=== PATIENT | male | born 1975 | race African-American/Black ===

== ENCOUNTER 2018-06-12 23:02 | Emergency (ER) | payer MEDICAID ==
[~2018-06-12] VITALS: Ht 185.4 cm; Wt 179.2 kg
[2018-06-12 23:10] VITALS: BP 155/84
[2018-06-12] MEDS ORDERED: Norco 5mg/325mg tab ORAL ONE (23:45)
[2018-06-12] MEDS ORDERED: AMOXICILLIN500 MG ORAL (23:45)
[2018-06-12] MEDS ORDERED: NORCO 5-325 TA1 EACH ORAL (23:45)
[2018-06-12 23:56] VITALS: BP 150/82
--- NOTE | 2018-06-13 00:24 | Emergency Room Report ---
History of Present Illness General Chief Complaint: Pain Source: Patient Present Illness HPI 43-year-old male presents ED for evaluation. Complaining of left-sided mouth pain. States that he's been experiencing some pain in his teeth and gums for the last few days. Schedule appointment with dentist tomorrow. States a low- grade fever at home. Pain is sharp, 10 out of 10, nonradiating. Causing headaches. Afebrile in triage. Denies any neck pain or neck stiffness. Denies earache or sore throat. No other aggravating relieving factors. Denies any other associated symptoms Allergies: Coded Allergies: No Known Allergies (Unverified , 06/12/18) Patient History Past Medical History: none Past Surgical History: none Pertinent Family History: none Social History: Denies: smoking, alcohol use, drug use Immunizations: UTD Reviewed Nursing Documentation: PMH: Agreed; PSxH: Agreed Nursing Documentation-PMH Past Medical History: No History, Except For Review of Systems All Other Systems: negative except mentioned in HPI Physical Exam Vital Signs Date Time Temp Pulse Resp B/P (MAP) Pulse Ox O2 Delivery O2 Flow Rate FiO2 06/12/18 23:06 99.2 71 16 155/84 96 Room Air 99.1 Sp02 EP Interpretation: reviewed, normal General Appearance: no apparent distress, alert, GCS 15, non-toxic, obese Head: normocephalic Eyes: bilateral eye normal inspection, bilateral eye PERRL ENT: hearing grossly normal, normal pharynx, no angioedema, normal voice, TMs + canals normal, other - inflammation of the gums upper and lower jaw Neck: normal inspection, supple, no meningismus Respiratory: normal inspection Cardiovascular #1: normal inspection Gastrointestinal: normal inspection Rectal: deferred Genitourinary: no CVA tenderness Musculoskeletal: normal inspection Neurologic: alert, oriented x3, responsive, motor strength/tone normal, sensory intact, speech normal Psychiatric: normal inspection Skin: normal inspection Lymphatic: normal inspection Medical Decision Making Diagnostic Impression: Primary Impression: Pain, dental ER Course 43-year-old male presents ED complaining of tooth pain. Cracked tooth, dental abscess, cavity Patient placed on stretcher. After initial history, physical exam reveals a male in mild distress. On exam there is evidence of dental caries however no particular tooth causing pain. There is inflammation noted in the gumline upper and lower jaw. No signs of induration or fluctuance or discharge suggestive of abscess. Discussed findings with patient. We will prescribe De Smet and amoxicillin. Recommend that he sees his dentist first thing in the morning given amoxicillin and De Smet in ED Diagnosis- dental pain Stable and discharged to home prescription for De Smet and amoxicillin. Instructed to see dentist as a walk-in this week. Return to ED if symptoms recur or worse Last Vital Signs Date Time Temp Pulse Resp B/P (MAP) Pulse Ox O2 Delivery O2 Flow Rate FiO2 06/12/18 23:56 99.0 76 18 150/82 98 Room Air Status: improved Disposition: HOME, SELF-CARE Condition: Stable Scripts Amoxicillin* (AMOXIL*) 500 Mg Capsule 500 MG ORAL THREE TIMES A DAY, #21 CAP Prov: Shine Bishop MD 06/12/18 Hydrocodone Bit/Acetaminophen 5-325* (NORCO 5-325*) 1 Each Tablet 1 TAB ORAL Q6H PRN for For Pain, #10 TAB 0 Refills Prov: Shine Bishop MD 06/12/18 Referrals: [facility](age 2-12) - Orthodontic Clinic - Hours: Tue,Tue,, 8:15am and 1pm (new patient screening), Tu. 1pm. Emergency clinic Tuesday - Tuesday 8:30am and 1pm, Tues. 1pm. *Call to check if clinic is open; No appointment necessary for the first visit ( new patient screening), Arrive 15-30 minutes early as it is first come, first serve. [facility] INFO: New Patient Screening: Tue- 8am-1pm Tue- 9am -5pm and Tue 2pm-5pm Patient Instructions: Dental Pain, [id number] Shine Bishop MD Jun 13, 2018 00:24
== END 2018-06-12 23:56 | disposition home or self-care (01) ==
LOC: EMR 23:32
DX: K08.89 Other specified disorders of teeth and supporting structures (principal)
CPT/HCPCS: 99283

== ENCOUNTER 2018-07-19 05:25 | Emergency (ER) | payer MEDICAID ==
[~2018-07-19] VITALS: Ht 188 cm; Wt 180.5 kg
[~2018-07-19 05:25] MED LIST: AMOXICILLIN500 MG ORAL; NORCO 5-325 TA1 EACH ORAL
[2018-07-19 05:47] VITALS: BP 165/80
[2018-07-19] MEDS ORDERED: Clindamycin 900mg 50 ML IVPB ONE (06:00)
[2018-07-19] MEDS ORDERED: HYDROmorphone 1mg/ml Carpuject IVP ONE ×3 (06:00→08:30)
--- NOTE | 2018-07-19 06:13 | Emergency Room Report ---
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 He presents with pain to the left leg. His been ongoing for a few months. Worse the last few days because he's been on his feet more. 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 His doctor him on Keflex for cellulitis of his skin. Things are not getting better said is why he is here. He denies any fever chills but denies any new trauma. Pain is 9 out of 10. Worse with walking. Better with rest. No drainage or fever. No history of high blood pressure DVT. Not on a medication. (Vinicio Laboy MD) Allergies: Coded Allergies: No Known Allergies (Unverified , 06/12/18) Patient History Past Medical History: see triage record, old chart reviewed Past Surgical History: other Pertinent Family History: none Social History: Denies: smoking Immunizations: other Reviewed Nursing Documentation: PMH: Agreed; PSxH: Agreed (Vinicio Laboy MD) Nursing Documentation-PMH Past Medical History: No Stated History (Vinicio Laboy MD) Review of Systems Eye: Denies: eye pain, blurred vision ENT: Denies: ear pain, nose congestion, throat swelling Respiratory: Denies: cough, shortness of breath Cardiovascular: Denies: chest pain, palpitations Gastrointestinal: Denies: abdominal pain, diarrhea, nausea, vomiting Musculoskeletal: Reports: muscle pain; Denies: back pain, joint pain Skin: Denies: rash Neurological: Denies: headache, numbness Endocrine: Denies: increased thirst, increased urine Hematologic/Lymphatic: Denies: easy bruising All Other Systems: negative except mentioned in HPI (Vinicio Laboy MD) Physical Exam Vital Signs Date Time Temp Pulse Resp B/P (MAP) Pulse Ox O2 Delivery O2 Flow Rate FiO2 07/19/18 05:26 98.1 69 18 169/89 98 Room Air vitals with high blood pressure Sp02 EP Interpretation: reviewed, normal General Appearance: well appearing, no apparent distress, alert, obese Head: normocephalic, atraumatic Eyes: bilateral eye PERRL, bilateral eye EOMI ENT: hearing grossly normal, normal pharynx Neck: full range of motion, supple, no meningismus Respiratory: chest non-tender, lungs clear, normal breath sounds Cardiovascular #1: regular rate, rhythm, no murmur Gastrointestinal: normal bowel sounds, non tender, no mass, no organomegaly, no bruit, non-distended Musculoskeletal: back normal, normal range of motion, other - Left lower extremity: On the lateral aspect distally, there is a 3 x 4cm dry ulcerated area. Tender to palpation. No weeping or discharge. No warmth. Neurologic: alert, oriented x3 Psychiatric: mood/affect normal Skin: warm/dry (Vinicio Laboy MD) Medical Decision Making Diagnostic Impression: Primary Impression: Venous stasis ulcer of left lower extremity Additional Impression: Cellulitis of left anterior lower leg ER Course Patient presents with pain from his venous stasis ulcer with possible cellulitis. IV antibiotics given. Pain medication given. Ultrasound ordered. I will sign this patient out to Dr. Bishop for final disposition. (Vinicio Laboy MD) ER Course Hospital Course 43-year-old male presents to ED with pain, redness to LLE Clinical course Patient initially seen and evaluated by Dr. Laboy; please see his note for full history and physical labs reviewed - no leukocytosis, Hb/Hct stable, K 5.2 Doppler US - left common femoral patent, however unable to adequately evaluate remainder of extremity due to body habitus Discussed findings with the patient. Given that patient is not responding to oral antibiotics patient will likely require admission for pain control and IV antibiotics. Patient agrees to plan antibiotics given. because of insurance patient will be transferred Diagnosis - venous stasis ulcer of left lower extremity, cellulitis of left anterior lower leg transferred in serious condition Labs Test 07/19/18 06:30 White Blood Count 6.1 K/UL (4.8-10.8) Red Blood Count 5.00 M/UL (4.70-6.10) Hemoglobin 13.8 G/DL (14.2-18.0) Hematocrit 42.5 % (42.0-52.0) Mean Corpuscular Volume 85 FL (80-99) Mean Corpuscular Hemoglobin 27.5 PG (27.0-31.0) Mean Corpuscular Hemoglobin Concent 32.3 G/DL (32.0-36.0) Red Cell Distribution Width 11.4 % (11.6-14.8) Platelet Count 181 K/UL (150-450) Mean Platelet Volume 6.8 FL (6.5-10.1) Neutrophils (%) (Auto) 61.5 % (45.0-75.0) Lymphocytes (%) (Auto) 24.3 % (20.0-45.0) Monocytes (%) (Auto) 9.6 % (1.0-10.0) Eosinophils (%) (Auto) 3.3 % (0.0-3.0) Basophils (%) (Auto) 1.4 % (0.0-2.0) Sodium Level 139 MMOL/L (136-145) Potassium Level 5.2 MMOL/L (3.5-5.1) Chloride Level 108 MMOL/L (98-107) Carbon Dioxide Level 24 MMOL/L (21-32) Anion Gap 7 mmol/L (5-15) Blood Urea Nitrogen 11 mg/dL (7-18) Creatinine 1.2 MG/DL (0.55-1.30) Estimat Glomerular Filtration Rate > 60 mL/min (>60) Glucose Level 99 MG/DL (74-106) Calcium Level 8.8 MG/DL (8.5-10.1) (Shine Bishop MD) CT/MRI/US Diagnostic Results CT/MRI/US Diagnostic Results : Imaging Test Ordered: Duplex US Impression patent common femoral artery on left. unable to visualize remainder of lower extremity due to body habitus (Shine Bishop MD) Last Vital Signs Date Time Temp Pulse Resp B/P (MAP) Pulse Ox O2 Delivery O2 Flow Rate FiO2 07/19/18 05:47 98.0 72 18 165/80 98 Room Air Status: improved (Vinicio Laboy MD) Status: improved (Shine Bishop MD) Disposition: XFER SHT-TRM HOSP Condition: Serious Scripts No Active Prescriptions or Reported Meds Referrals: [facility] (PCP) Vinicio Laboy MD Jul 19, 2018 06:12 Shine Bishop MD Jul 19, 2018 09:01
[2018-07-19 06:58] LABS: BASOPHILS % (AUTO) 1.4 % (0.0-2.0); EOSINOPHILS % (AUTO) 3.3 % (0.0-3.0); HEMATOCRIT 42.5 % (42.0-52.0); HEMOGLOBIN 13.8 G/DL (14.2-18.0); LYMPHOCYTES % (AUTO) 24.3 % (20.0-45.0); MEAN CORPUSCULAR VOLUME 85 FL (80-99); MONOCYTES % (AUTO) 9.6 % (1.0-10.0); NEUTROPHILS % (AUTO) 61.5 % (45.0-75.0); PLATELET COUNT 181 K/UL (150-450); RED CELL DISTRIBUTION WIDTH 11.4 % (11.6-14.8); WHITE BLOOD COUNT 6.1 K/UL (4.8-10.8)
[2018-07-19 07:03] LABS: ANION GAP 7 mmol/L (5-15); BLOOD UREA NITROGEN 11 mg/dL (7-18); CALCIUM 8.8 MG/DL (8.5-10.1); CARBON DIOXIDE 24 MMOL/L (21-32); CHLORIDE 108 MMOL/L (98-107); CREATININE 1.2 MG/DL (0.55-1.30); SODIUM 139 MMOL/L (136-145)
[2018-07-19 07:05] LABS: POTASSIUM 5.2 MMOL/L (3.5-5.1)
[2018-07-19 08:08] VITALS: BP 136/77
[2018-07-19] MEDS ORDERED: Ketorolac 30mg Inj IV ONE (08:30)
[2018-07-19 09:54] VITALS: BP 145/77
== END 2018-07-19 10:15 | disposition short-term general hospital (02) ==
LOC: EMR 05:48
DX: I87.8 Other specified disorders of veins (principal); L03.116 Cellulitis of left lower limb; Z86.718 Personal history of other venous thrombosis and embolism
CPT/HCPCS: 36415; 80048; 82962; 85025; 96361; 96365; 96375; 96376; 99285; J1170; J1885; J2405; S0077

== ENCOUNTER 2018-10-24 05:59 | Emergency (ER) | payer MEDICAID ==
[~2018-10-24] VITALS: Ht 185.4 cm; Wt 181.4 kg
[2018-10-24] MEDS ORDERED: XARELTO20 MG ORAL (06:08)
[2018-10-24 06:10] VITALS: BP 160/97
--- NOTE | 2018-10-24 06:13 | NUR ---
ED Nurse Note: patient ambulated to ED c/o coughing and congestion x 2. Reports pain in left leg; denies trauma or fall. upon skin asssment, no laceration noted. pt is able to ambulate with no complications. pt does note appear to be in any respritory distress, all lung sounds are clear.
[2018-10-24 06:19] VITALS: BP 157/95
[2018-10-24] MEDS ORDERED: PROMETHAZINE-C118 M1 ORAL (06:22)
--- NOTE | 2018-10-24 06:23 | Emergency Room Report ---
History of Present Illness General Chief Complaint: Upper Respiratory Illness Source: Patient Present Illness HPI This a 43-year-old male with a history of DVT and PE on Xarelto. He presents with chief complaint of cough and congestion. Onset for 1 day. His here for the same thing. Worse with lying flat. Worse with inspiration. No fever chills. No nausea or vomiting. Allergies: Coded Allergies: No Known Allergies (Unverified , 10/24/18) Patient History Past Medical History: see triage record, old chart reviewed Past Surgical History: none Pertinent Family History: none Social History: Denies: smoking Immunizations: other Reviewed Nursing Documentation: PMH: Agreed; PSxH: Agreed Nursing Documentation-PMH Past Medical History: No History, Except For Review of Systems Eye: Denies: eye pain, blurred vision ENT: Denies: ear pain, nose congestion, throat swelling Respiratory: Reports: cough, shortness of breath Cardiovascular: Denies: chest pain, palpitations Gastrointestinal: Denies: abdominal pain, diarrhea, nausea, vomiting Musculoskeletal: Denies: back pain, joint pain Skin: Denies: rash Neurological: Denies: headache, numbness Endocrine: Denies: increased thirst, increased urine Hematologic/Lymphatic: Denies: easy bruising All Other Systems: negative except mentioned in HPI Physical Exam Vital Signs Date Time Temp Pulse Resp B/P (MAP) Pulse Ox O2 Delivery O2 Flow Rate FiO2 10/24/18 06:03 98.2 73 22 161/97 97 Room Air 10/24/18 06:10 98 vitals with high blood pressure Sp02 EP Interpretation: reviewed, normal General Appearance: well appearing, no apparent distress, alert Head: normocephalic, atraumatic Eyes: bilateral eye PERRL, bilateral eye EOMI ENT: hearing grossly normal, normal pharynx Neck: full range of motion, supple, no meningismus Respiratory: chest non-tender, lungs clear, normal breath sounds Cardiovascular #1: regular rate, rhythm, no murmur Gastrointestinal: normal bowel sounds, non tender, no mass, no organomegaly, no bruit, non-distended Musculoskeletal: back normal, gait/station normal, normal range of motion Psychiatric: mood/affect normal Skin: warm/dry Medical Decision Making Diagnostic Impression: Primary Impression: Upper respiratory infection Qualified Codes: J06.9 - Acute upper respiratory infection, unspecified ER Course Patient with viral symptoms. No evidence of pneumonia. He is already on Xarelto. I see no need for workup on PE or DVT. Last Vital Signs Date Time Temp Pulse Resp B/P (MAP) Pulse Ox O2 Delivery O2 Flow Rate FiO2 10/24/18 06:10 98.2 73 22 160/97 97 Room Air 10/24/18 06:10 98 Status: unchanged Disposition: HOME, SELF-CARE Condition: Stable Scripts Codeine/Promethazine Hcl* (PROMETHAZINE-CODEINE SYRUP*) 118 Ml Syrup 10 ML ORAL Q6H PRN for For Cough, #120 ML 0 Refills Prov: Vinicio Laboy MD 10/24/18 Patient Instructions: Upper Respiratory Infection, Adult Additional Instructions: Follow-up with your doctor in 7 days. Return if symptom worsen. Vinicio Laboy MD Oct 24, 2018 06:23
--- NOTE | 2018-10-24 06:24 | NUR ---
ER DISCHARGE NOTE: Patient is cleared to be discharged per ERMD, pt is aox4, on room air, with stable vital signs. pt was given dc and prescription instructions, pt was able to verbalize understanding, pt id band removed without complications. pt is able to ambulate with steady gait. pt took all belongings.
[2018-10-24] MEDS ORDERED: OXYCODONE-ACET1 EAC5 ORAL (06:31)
[2018-10-24] MEDS ORDERED: MUPIROCIN22 GM TOPIC (06:31)
== END 2018-10-24 06:30 | disposition home or self-care (01) ==
LOC: EMR 06:20
DX: J06.9 Acute upper respiratory infection, unspecified (principal)
CPT/HCPCS: 99282

== ENCOUNTER 2018-11-13 23:44 | Emergency (ER) | payer MEDICAID ==
[~2018-11-13] VITALS: Ht 185.4 cm; Wt 190.5 kg
[~2018-11-13 23:44] MED LIST changes: +MUPIROCIN22 GM TOPIC; +OXYCODONE-ACET1 EAC5 ORAL; +PROMETHAZINE-C118 M1 ORAL; +XARELTO20 MG ORAL
[2018-11-13 23:58] VITALS: BP 142/83
--- NOTE | 2018-11-13 23:58 | NUR ---
ED Nurse Note: Pt arrived ED from home, c/o both legs pain for 2 days and run out of meds. Pt is A/O X 4. VSS.
--- NOTE | 2018-11-14 00:14 | Emergency Room Report ---
History of Present Illness General Chief Complaint: Pain Source: Patient Present Illness HPI Patient presents with complaints of swelling and tightness to both of his legs Reports that he has been off his xarelto for the past 6 days Reports that he has a history of PE IVC filter and DVTs Denies any chest pain denies any shortness of breath Patient was here recently with complaints of URI symptoms Reports that he had a recent trip to [facility] And essentially did not take his medications Denies any focal weakness Allergies: Coded Allergies: No Known Allergies (Unverified , 10/24/18) Patient History Past Medical History: see triage record Pertinent Family History: none Reviewed Nursing Documentation: PMH: Agreed; PSxH: Agreed Review of Systems All Other Systems: negative except mentioned in HPI Physical Exam Vital Signs Date Time Temp Pulse Resp B/P (MAP) Pulse Ox O2 Delivery O2 Flow Rate FiO2 11/13/18 23:49 98.2 81 16 149/89 95 Room Air Sp02 EP Interpretation: reviewed, normal General Appearance: no apparent distress Head: normocephalic, atraumatic Eyes: bilateral eye PERRL, bilateral eye EOMI ENT: normal pharynx, no angioedema Neck: supple, no meningismus Respiratory: lungs clear, no respiratory distress, no retraction, no accessory muscle use Cardiovascular #1: regular rate, rhythm Gastrointestinal: non tender, soft Musculoskeletal: normal inspection Neurologic: alert, oriented x3, responsive Skin: other - Edema bilaterally Lymphatic: no adenopathy Medical Decision Making Diagnostic Impression: Primary Impression: Leg pain Additional Impressions: Noncompliance with medication regimen Pulmonary embolism ER Course Patient has fairly significant past medical history Hemodynamically at this time is appropriate Heart rate is 80 saturations are normal Patient's respiration rate is appropriate and does not appear to be in any acute distress Patient reports that he essentially did not take his medications He states that 'it's one of those things' He understands that the diagnosis that he has or life-threatening and not taking the medication can lead to worsening symptoms and possible Patient was provided with medication here He is encouraged to follow up closely with his primary physician Patient also had recent presentation here with complaints of cough and URI symptoms again at this time I did not see any emergent presentation for further workup And patient stable for close outpatient reevaluation Last Vital Signs Date Time Temp Pulse Resp B/P (MAP) Pulse Ox O2 Delivery O2 Flow Rate FiO2 11/13/18 23:49 98.2 81 16 149/89 95 Room Air Status: unchanged Disposition: HOME, SELF-CARE Condition: Stable Scripts Rivaroxaban (XARELTO) 20 Mg Tablet 20 MG ORAL DAILY for 30 Days, MG 0 Refills Prov: Sheri Katz DO 11/14/18 Additional Instructions: Patient is provided with the discharge instructions notified to follow up with primary doctor in the next 2-3 days otherwise return to the er with any worsening symptoms. Please note that this report is being documented using [employer] technology. This can lead to erroneous entry secondary to incorrect interpretation by the dictating instrument. Sheri Katz DO Nov 14, 2018 00:14
[2018-11-14] MEDS ORDERED: Xarelto 10mg tab ORAL ONE (00:15)
[2018-11-14] MEDS ORDERED: XARELTO20 MG ORAL (00:34)
[2018-11-14 00:43] VITALS: BP 141/82
--- NOTE | 2018-11-14 00:43 | NUR ---
ER DISCHARGE NOTE: Patient is cleared to be discharged per Dr. Almanza. Pt is A/O x 4 on room air with stable vital signs. Pt was given dc and prescription instructions and was able to verbalize understanding. Pt ID band removed . Pt is able to ambulate with steady gait, pt took all belongings.
== END 2018-11-14 01:00 | disposition home or self-care (01) ==
LOC: EMR 23:58
DX: M79.605 Pain in left leg (principal); M79.604 Pain in right leg; R60.0 Localized edema; Z86.711 Personal history of pulmonary embolism; Z86.718 Personal history of other venous thrombosis and embolism; Z79.01 Long term (current) use of anticoagulants; Z91.14 Patient's other noncompliance with medication regimen
CPT/HCPCS: 99282

== ENCOUNTER 2019-07-31 14:19 | Emergency (ER) | payer MEDICAID ==
[~2019-07-31] VITALS: Ht 185.4 cm; Wt 186.0 kg
[2019-07-31 14:32] VITALS: BP 126/84
--- NOTE | 2019-07-31 14:32 | NUR ---
ED Nurse Note: pt walked in to ER from home due to medication refill. no acute distress noted.
[2019-07-31 14:39] VITALS: BP 126/84
[2019-07-31] MEDS ORDERED: XARELTO20 MG ORAL (14:40)
--- NOTE | 2019-07-31 14:40 | Emergency Room Report ---
History of Present Illness General Chief Complaint: Medication Refill Source: Patient Present Illness HPI 44-year-old male presents for medication refill, aggravated by not having his Xarelto, alleviated by having Xarelto severity is mild ran out of meds 2 days ago. no cp sob. Allergies: Coded Allergies: No Known Allergies (Unverified , 10/24/18) Patient History Past Medical History: see triage record Reviewed Nursing Documentation: PMH: Agreed; PSxH: Agreed Nursing Documentation-PMH Past Medical History: No Stated History Review of Systems All Other Systems: negative except mentioned in HPI Physical Exam Vital Signs Date Time Temp Pulse Resp B/P (MAP) Pulse Ox O2 Delivery O2 Flow Rate FiO2 07/31/19 14:32 98.4 68 16 126/84 (98) 98 Room Air General Appearance: well appearing, no apparent distress Head: normocephalic, atraumatic Eyes: bilateral eye PERRL, bilateral eye EOMI ENT: hearing grossly normal, normal voice Neck: full range of motion, supple Respiratory: no respiratory distress, speaking full sentences Neurologic: alert, normal gait Psychiatric: mood/affect normal Skin: no rash Medical Decision Making Diagnostic Impression: Primary Impression: Encounter for medication refill ER Course Patient presents for medication refill Provided patient with prescription for Xarelto Last Vital Signs Date Time Temp Pulse Resp B/P (MAP) Pulse Ox O2 Delivery O2 Flow Rate FiO2 07/31/19 14:32 98.4 68 16 126/84 (98) 98 Room Air Disposition: HOME, SELF-CARE Condition: Stable Scripts Rivaroxaban (XARELTO) 20 Mg Tablet 20 MG ORAL DAILY for 30 Days, MG 0 Refills Prov: Buthc Boateng MD 07/31/19 Referrals: [facility] Anjel Rojas [facility] Patient Instructions: Medicine Refill at the Emergency Department Additional Instructions: The patient was provided with discharge instructions, notified to follow-up with a primary care doctor and or specialist in the next 24-48 hours, and to return to the ED if they have worsening of their symptoms. Please note that this report is being documented using [employer] technology. This can lead to erroneous entry secondary to incorrect interpretation by the dictating instrument. Butch Boateng MD Jul 31, 2019 14:40
--- NOTE | 2019-07-31 14:43 | NUR ---
ED Nurse Note: Pt cleared by health care Provider for discharge after received prescription. DC instructions/prescription was given and explained to pt and verbalized understanding of teachings. All medical deviecs such as ID band removed. Pt is AAO x4, ambulatory and left with all personal belongings.
== END 2019-07-31 15:00 | disposition home or self-care (01) ==
LOC: EMR 14:53
DX: Z76.0 Encounter for issue of repeat prescription (principal)
CPT/HCPCS: 99282

== ENCOUNTER 2019-08-08 23:34 | Emergency (ER) | payer MEDICAID ==
[~2019-08-08] VITALS: Ht 193 cm; Wt 179.2 kg
--- NOTE | 2019-08-09 00:15 | NUR ---
ED Nurse Note: Pt ambulated to ED from home c/o 10/10 bilateral lower leg pain, pt has hx of cellulitis and fluid retention. VSS pt is A&Ox4
--- NOTE | 2019-08-09 01:33 | Emergency Room Report ---
History of Present Illness General Chief Complaint: Lower Extremity Injury Present Illness HPI Patient is a 44-year-old male who presents after increased bilateral lower extremity discomfort and swelling. Patient reports having primarily pain to the left lower extremity. Prior history of deep venous thrombosis. He is currently anticoagulated with Xarelto. He reports of increased discomfort as well as swelling to his legs. Previous fasciotomy to his right leg due to prior swelling episodes. Allergies: Coded Allergies: No Known Allergies (Unverified , 10/24/18) Patient History Past Medical History: see triage record Reviewed Nursing Documentation: PMH: Agreed; PSxH: Agreed Review of Systems All Other Systems: negative except mentioned in HPI Physical Exam Vital Signs Date Time Temp Pulse Resp B/P (MAP) Pulse Ox O2 Delivery O2 Flow Rate FiO2 08/09/19 00:09 98.4 87 18 128/80 (96) 95 Room Air Sp02 EP Interpretation: reviewed, normal General Appearance: normal inspection, well appearing, no apparent distress, alert, GCS 15 Head: atraumatic ENT: normal ENT inspection, hearing grossly normal, normal voice Neck: normal inspection, full range of motion, supple, no bony tend Respiratory: normal inspection, lungs clear, normal breath sounds, no respiratory distress, no retraction, no wheezing Cardiovascular #1: regular rate, rhythm, no edema Gastrointestinal: normal inspection, normal bowel sounds, non tender, soft, no guarding, no hernia Genitourinary: no CVA tenderness Musculoskeletal: normal inspection, back normal, normal range of motion Neurologic: alert, responsive, speech normal, normal inspection Psychiatric: normal inspection, judgement/insight normal, mood/affect normal Medical Decision Making Last Vital Signs Date Time Temp Pulse Resp B/P (MAP) Pulse Ox O2 Delivery O2 Flow Rate FiO2 08/09/19 00:09 98.4 87 18 128/80 (96) 95 Room Air Scripts Hydrocodone Bit/Acetaminophen 5-325* (NORCO 5-325*) 1 Each Tablet 1 TAB ORAL Q6H PRN for For Pain, #10 TAB 0 Refills Prov: Herson Nugent MD 08/09/19 Cephalexin* (KEFLEX*) 500 Mg Capsule 500 MG ORAL EVERY 6 HOURS, #28 CAP Prov: Herson Nugent MD 08/09/19 Referrals: [facility] (PCP) Herson Nugent MD Aug 09, 2019 01:33
[2019-08-09] MEDS ORDERED: HYDROcodone/Acetamin 5/325 tab ORAL ONE (02:00)
--- NOTE | 2019-08-09 02:15 | NUR ---
ED Nurse Note: Pt resting in bed with eyes closed, non-labored breathing, no signs of distress. Pt urinated x2, 700mls total
[2019-08-09 02:19] LABS: BASOPHILS % (AUTO) 0.9 % (0.0-2.0); EOSINOPHILS % (AUTO) 5.4 % (0.0-3.0); HEMATOCRIT 41.7 % (42.0-52.0); HEMOGLOBIN 13.4 G/DL (14.2-18.0); LYMPHOCYTES % (AUTO) 33.3 % (20.0-45.0); MEAN CORPUSCULAR VOLUME 86 FL (80-99); MONOCYTES % (AUTO) 8.4 % (1.0-10.0); NEUTROPHILS % (AUTO) 52.1 % (45.0-75.0); PLATELET COUNT 186 K/UL (150-450); RED BLOOD COUNT 4.83 M/UL (4.70-6.10); RED CELL DISTRIBUTION WIDTH 12.2 % (11.6-14.8)
[2019-08-09 02:35] LABS: ANION GAP 5 mmol/L (5-15); BLOOD UREA NITROGEN 10 mg/dL (7-18); CALCIUM 7.9 MG/DL (8.5-10.1); CARBON DIOXIDE 29 MMOL/L (21-32); CHLORIDE 108 MMOL/L (98-107); CREATININE 1.5 MG/DL (0.55-1.30); POTASSIUM 3.4 MMOL/L (3.5-5.1); SODIUM 142 MMOL/L (136-145)
[2019-08-09 02:46] LABS: ALANINE AMINOTRANSFERASE 31 U/L (12-78); ALBUMIN 3.1 G/DL (3.4-5.0); ALBUMIN/GLOBULIN RATIO 0.7 (1.0-2.7); ALKALINE PHOSPHATASE 67 U/L (46-116); ASPARTATE AMINO TRANSFERASE 24 U/L (15-37); BILIRUBIN,TOTAL 0.6 MG/DL (0.2-1.0)
[2019-08-09] MEDS ORDERED: CEPHALEXIN500 MG ORAL (03:11)
[2019-08-09] MEDS ORDERED: NORCO 5-325 TA1 EACH ORAL ×2 (03:11→03:12)
[2019-08-09 03:15] VITALS: BP 128/80
--- NOTE | 2019-08-09 03:15 | NUR ---
ER DISCHARGE NOTE: Patient is cleared to be discharged per ERMD, pt is aox4, on room air, with stable vital signs. pt was given dc and prescription instructions, pt was able to verbalize understanding, pt id band and iv site removed without complications. pt is able to ambulate with steady gait. pt took all belongings.
== END 2019-08-09 03:15 | disposition home or self-care (01) ==
LOC: EMR 08-09 01:02
DX: R22.43 Localized swelling, mass and lump, lower limb, bilateral (principal); Z86.718 Personal history of other venous thrombosis and embolism; Z79.01 Long term (current) use of anticoagulants
CPT/HCPCS: 36415; 80053; 83880; 85025; 96374; J1940; Z7502; 99284